=== PATIENT | female | born 2000 | race Caucasian/White ===

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

== ENCOUNTER 2023-09-19 15:26 | Emergency (ER) | payer MEDICAID, SELFPAY ==
[2023-09-19 15:32] VITALS: BP 132/78; PULSE 75; RESP 17; TEMP 36.7; O2SAT 98; BMI 16.5
--- NOTE | 2023-09-19 15:42 | XRR_ITS ---
PROCEDURE INFORMATION: Exam: XR Right Hand Exam date and time: 09/19/2023 4:04 PM Age: 22 years old Clinical indication: Injury or trauma; Other: RT hand/wrist pain after fall TECHNIQUE: Imaging protocol: Radiologic exam of the right hand. Views: 3 or more views. COMPARISON: CR ([facility], ) 09/19/2023 4:04 PM FINDINGS: Bones/joints: Comminuted displaced intra-articular fracture of the base of the 5th metacarpal. Soft tissues: Normal. XR/XR hand RT min 3V* [id number] IMPRESSION: Comminuted displaced intra-articular fracture of the base of the 5th metacarpal.
--- NOTE | 2023-09-19 15:54 | XRR_ITS ---
PROCEDURE INFORMATION: Exam: XR Right Wrist Exam date and time: 09/19/2023 4:04 PM Age: 22 years old Clinical indication: Injury or trauma; Other: RT hand/wrist pain after fall TECHNIQUE: Imaging protocol: Radiologic exam of the right wrist. Views: 3 or more views. COMPARISON: CR ([facility], ) 09/19/2023 4:04 PM FINDINGS: Bones/joints: Comminuted displaced intra-articular fracture of the base of the 5th metacarpal. Soft tissues: Normal. XR/XR wrist RT min 3V* [id number] IMPRESSION: Comminuted displaced intra-articular fracture of the base of the 5th metacarpal.
--- NOTE | 2023-09-19 16:05 | ED_ITS ---
HPI - Extremity Problem General: Chief complaint: Extremity Injury, Upper Stated complaint: right hand/wrist pain Time Seen by Provider: 09/19/23 15:42 History of Present Illness: 22-year-old female presents emergency ro om with complaints of pain to her left hand and wrist. She isolates pain to the area of fourth and fifth metacarpals on the distal ulna region. Patient states last night she was highly intoxicated and hurt it she is not sure how she denies any other injury no deformity she is still able to hold a phone and use it quite adaptively as demonstrated during the exam. Review of Systems Musc: Reports: joint pain and joint swelling PFS ED PFSH: Medical History No pertinent family history Surgical History No pertinent past surgical history Physical Exam Narrative: EXAM NARRATIVE: Examination and mild swelling at the distal ulna no obvious deformity no lacerations no abrasions. Patient reports pain with palpation fourth and fifth metacarpals neurovascularly intact throughout the left hand Course Vital Signs: Vital signs: Vital Signs Temperature 98.1 F 09/19/23 15:32 Pulse Rate 75 09/19/23 15:32 Respiratory Rate 17 09/19/23 15:32 Blood Pressure 132/78 09/19/23 15:32 Pulse Oximetry 98 09/19/23 15:32 Oxygen Delivery Me thod Room Air 09/19/23 15:32 MDM - Extremity (Nontraumatic) Medical Decision Making Proximal fifth metacarpal fracture with mild displaced fragments. Place patient in ulnar gutter splint and refer to orthopedic surgery. Elevate hand whenever able Tylenol ibuprofen for. Ice as needed. XR interpretation done by ED provider, pending radiology final review ED provider radiology interpretation(s): Proximal fifth metacarpal fracture mildly displaced fragments. No wrist fracture Discharge Plan Discharge Patient Disposition: Home Clinical Impression: Fracture of base of fifth metacarpal bone of left hand Condition: Stable Prescriptions: No Action ProAir HFA 90 mcg/actuation HFA aerosol inhaler 1 - 2 puff INHALATION Q6H PRN (Reason: Shortness Of Breath) Celebrex 100 mg capsule 100 mg PO BID PRN (Reason: pain) Qty: 20 0RF cyclobenzaprine 5 mg tablet 5 mg PO BID PRN (Reason: muscle spasm) Qty: 20 0RF Discharge Orders: Discharge ED (Routine); Ordered 09/19/23 Ordered By: Frankie Smith Discharge Diet: Usual diet Discharge Activity: Resume usual activity Patient Instructions: Opioid Safety, Pain Management Activity Restrictions/Additional Instructions: Thank you for choosing [facility] for your healthcare needs today. It is very important that you follow up as instructed or that you return to the Emergency Department should you have concerns or if your condition changes or worsens in any way. You were seen today for pain in your left hand. There is a fracture at the base of the fifth metacarpal bone. You should leave the splint in place and follow- up with orthopedics case management make arrangements for follow-up. Elevate the hand as often as you are able, apply ice use Tylenol as needed for pain Coding Level of Care Code ED Magnet Placer for Megha Paulino
--- NOTE | 2023-09-21 07:43 | DCPLANNER ---
messaged ortho for er f/u
== END 2023-09-19 16:43 | disposition home or self-care (01) ==
PROVIDERS: Emergency Provider Family Medicine
DX: S62.316A Displaced fracture of base of fifth metacarpal bone, right hand, initial encounter for closed fracture (principal); X58.XXXA Exposure to other specified factors, initial encounter
CPT/HCPCS: 29125; 73110; 73130; 99283

== ENCOUNTER 2023-09-21 16:31 | Outpatient (CLI) | payer MEDICAID, SELFPAY | END 2023-09-21 16:32 | disposition home or self-care (01) | LOC: SPT 16:36 | PROVIDERS: Visit Provider Specialist | DX: Z46.89 Encounter for fitting and adjustment of other specified devices (principal); S62.306D Unspecified fracture of fifth metacarpal bone, right hand, subsequent encounter for fracture with routine healing; X58.XXXD Exposure to other specified factors, subsequent encounter | CPT/HCPCS: 26600; 97760; 99204; L3984 ==

== ENCOUNTER → 2023-10-05 10:24 | Outpatient (BNVA) | payer MEDICAID, SELFPAY | PROVIDERS: PCP Nurse Practitioner; Visit Provider Specialist | DX: S62.316D Displaced fracture of base of fifth metacarpal bone, right hand, subsequent encounter for fracture with routine healing (principal); X58.XXXD Exposure to other specified factors, subsequent encounter | CPT/HCPCS: 73130; 99024 ==

== ENCOUNTER → 2023-10-21 14:52 | Outpatient (BNVA) | payer MEDICAID, SELFPAY | PROVIDERS: PCP Nurse Practitioner; Visit Provider Specialist | DX: S62.316D Displaced fracture of base of fifth metacarpal bone, right hand, subsequent encounter for fracture with routine healing; X58.XXXD Exposure to other specified factors, subsequent encounter | CPT/HCPCS: 73130; 99213 ==

== ENCOUNTER → 2023-11-04 11:07 | Outpatient (BNVA) | payer MEDICAID, SELFPAY | PROVIDERS: PCP Nurse Practitioner; Visit Provider Specialist | DX: S62.316D Displaced fracture of base of fifth metacarpal bone, right hand, subsequent encounter for fracture with routine healing (principal); X58.XXXD Exposure to other specified factors, subsequent encounter | CPT/HCPCS: 73130; 99213 ==